=== PATIENT | male | born 1960 | race Caucasian/White ===

== ENCOUNTER 2016-11-07 10:06 | Day surgery (SDC) | payer OTHER ==
[~2016-11-07] VITALS: Ht 180.3 cm; Wt 81.0 kg
[2016-11-07] VITALS (10 sets, daily range): BP systolic 129–135; BP diastolic 84–94; PULSE 72–111; RESP 2–16; O2SAT 94–99
[~2016-11-07 10:06] MED LIST: ASCO-294 PO; CYCL5TAB PO; CeFAZolin 2 Gm/50 mL D5W IV Premix IV ONE; IMI100 PO; IMMU1VIA INFUSION; Lactated Ringer's 1,000 ML IV SCH; MULT-1018 PO; NAPR500T PO; PANT40TA3 PO; PHN100C PO
[2016-11-07] MEDS ORDERED: Succinylcholine Chloride 20 mg/mL 5 mL Inj ONE (10:07)
[2016-11-07] MEDS ORDERED: fentaNYL-PF 50 mCg/mL 2 mL Inj ONE (10:07)
[2016-11-07] MEDS ORDERED: Phenylephrine/NS 100 mCg/mL 10 mL Syringe IVPUSH ONE (10:07)
[2016-11-07] MEDS ORDERED: Ondansetron 2 mg/mL 2 mL Inj ONE (10:07)
[2016-11-07] MEDS ORDERED: Dexamethasone 4 mg/mL Inj ONE (10:07)
[2016-11-07] MEDS ORDERED: Propofol 10,000 mCg/mL 20 mL Inj ONE (10:07)
--- NOTE | 2016-11-07 10:09 | PCM.HPANE ---
Patient Data Date of Service: Nov 07, 2016 Surgeon Admitting Provider: Attending Provider:Jeferson Brown DO Primary Care Physician:Gemini Jasso MD Other Provider:Hubert Dowd Anesthesia Reason for Visit Left Rotator Cuff Tear, Impingment Syndrome Ht/WT & BMI Height (Feet): 5 Height (Inches): 11 Weight (Kilograms): 82.19 Body Mass Index 25.00 Allergies Coded Allergies: No Known Allergies (Unverified , 02/02/16) Past Anesthesia History Anesthesia History: Denies:: Anesthesia Reactions Diabetes History Hx Diabetes?: No Medications Reported Medications Ascorbate Calcium (Vitamin C)500 Mg [id number] Mg PO DAILY 11/04/16 Sumatriptan (Imitrex)100 Mg Fxfrtn678 Mg PO PRN migraines 11/04/16 Phenytoin Sodium ER (Dilantin)100 Mg Lcorbuk214 Mg PO TID 11/04/[address] 40 Mg Tablet.dr20 Mg PO BID Ref 0 11/04/16 Naproxen (Naprosyn)500 Mg Dtrkcj930 Mg PO BID PRN For Pain Ref 0 11/04/16 Multivitamin (Multi Vitamin Daily)1 Each Tablet1 Each PO DAILY 30 Days Ref 0 11/04/16 Immune Glob,Sallie Caprylate(IgG) (Gammaked)1 Gm/10 Ml VialUnknown Dose INFUSION DIRECTED 8mg/kg infusion. 11/04/16 Cyclobenzaprine 5 Mg Tablet5 Mg PO TID PRN Spasm 11/04/16 History History of ENT Problems?: No Hx of Heart Problems?: No Hx of Respiratory Problem?: No Respiratory History: Denies:: Oxygen Administration Use of C-PAP Machine Hx Neurologic Problems?: Yes Neurological History: Positive for:: Headaches (migraines) Other Neurological Pertinent: multi- focal motor neuropathy Other History/Comments neuropathy on right only Hx of GI Problems?: No Hx of Problems?: No Male Hx: Denies:: Prostate Problems Hx Musculoskeletal Problems?: Yes Musculoskeletal History: Positive for:: Musculoskeletal Trauma (left shoulder current admission problem) Hx of Psycho/Social Problems?: No Hx Surgeries?: No (unknown) Hx Any Other Health Problems?: Yes Other History: Denies:: Cancer Thyroid Disease Hx Diabetes: No Hx Alcohol Use: YesAlcoholic Drinks Per Day: 1-2 drinks monthlyHx Substance Use: No Smoking Status: Unknown if Ever Smoker Have You Smoked inLast 12 mo: No Stop/Bang P-Blood Pressure: treated: No B- Body Mass Index > 35 kg/m2: No A- Age over 50: Yes N- Neck Large Circumference: No G- Gender Male: Yes RAMOS Risk Assessment: Low Risk, <3 Yes Risk Assessment Category Category 1A: Patient has history of documented sleep apnea, and HAS NOT received any narcotic, sedative or anesthesia administration during this stay. Category 1B: Patient has history of documented sleep apnea, and HAS received any narcotic , sedative or anesthesia administration during this stay Category 2: Patient has SUSPECTED Obstructive Sleep Apnea, and HAS received any narcotic , sedative or anesthesia administration during this stay. Category 3: Patient has SUSPECTED Obstructive Sleep Apnea and HAS NOT received narcotic, sedative or anesthesia administration during this stay. Category 4: Outpatient in Procedural Areas with known sleep apnea or who screen positive for High Risk via the STOP/BANG questionnaire. Exam Exam General Appearance: Alert, Oriented X3, Cooperative, No Acute Distress HEENT/AIRWAY: MP 3 Lungs: Clear to Auscultation, Normal Air Movement Heart: Exam Unremarkable, Regular Rate/Rhythm, No Murmurs/Rubs/Gallops Plan Impression Patient chart reviewed, patient interviewed and anesthestic plan with risks, benefits, and alternatives discussed, and informed consent obtained. ASA Physical Status: ASA2 Mod Systemic Disease Anesthetic Plan: GA, Regional Block Bene/Risks/Altern/Consents: Yes HP Complete Prior to Induction: Yes Jeremiah Welch MD Nov 07, 2016 10:09 Alpesh Cook MD Nov 07, 2016 10:41
[2016-11-07] MEDS ORDERED: CeFAZolin Inj 2 gm / 50mL D5W IV ONE (10:11)
[2016-11-07] MEDS ORDERED: Lactated Ringer's 1,000 ML IV ONE (10:47)
[2016-11-07] MEDS ORDERED: Lactated Ringer's 1,000 ML IV SCH (11:26)
[2016-11-07] MEDS ORDERED: Lactated Ringer's 500 ML IV PRN (11:26)
[2016-11-07] MEDS ORDERED: HYDROmorphone 1 mg/mL Inj IVPUSH PRN (11:30)
[2016-11-07] MEDS ORDERED: Labetalol 5 mg/mL 4 mL Inj IV PRN (11:30)
[2016-11-07] MEDS ORDERED: Ondansetron 2 mg/mL 2 mL Inj IVPUSH PRN (11:30)
[2016-11-07] MEDS ORDERED: fentaNYL-PF 50 mCg/mL 2 mL Inj IVPUSH PRN (11:30)
[2016-11-07] MEDS ORDERED: Phenylephrine 10,000 mCg/mL Inj IVPUSH PRN (11:30)
[2016-11-07] MEDS ORDERED: MetoCLOpramide 5 mg/mL 2 mL Inj IVPUSH PRN (11:30)
[2016-11-07] MEDS ORDERED: Atropine 0.4 mg/mL Inj IVPUSH PRN (11:30)
[2016-11-07] MEDS ORDERED: hydrALAZINE 20 mg/mL Inj IVPUSH PRN (11:30)
[2016-11-07] MEDS ORDERED: EPHEDrine Sulfate 50 mg/mL Inj IVPUSH PRN (11:30)
--- NOTE | 2016-11-07 13:18 | PCM.ANEP1 ---
Post Anesthesia Phase 1 PACU Phase 1 Assessment Date of Service: Nov 07, 2016 Vital Signs 36.4 132/91 110 18 92% RA Anesthetic Administered: GA, Regional Block Level of Alertness: Sleepy, easy to arouse HANSON's with Equal Strength: Yes Pain: No Nausea or Vomiting: No Oxygen Delivery: Room Air Lungs: Clear to Auscultation, Normal Air Movement Alpesh Cook MD Nov 07, 2016 13:18
[2016-11-07] MEDS ORDERED: oxyCODONE-Acetamin 5-325 mg Tablet PO PRN (13:20)
--- NOTE | 2016-11-07 14:04 | PCM.ANEP2 ---
Post Anesthesia Evaluation ASA/CMS Post Anesthesia Date of Service: Nov 07, 2016 VS in Patient's Normal Range?: Yes Resp Stable; Airway Patent?: Yes CV Function & Hydration Stable: Yes Mental Status Recovered?: Yes Pain control Satisfactory?: Yes N/V Control Satisfactory?: Yes Alpesh Cook MD Nov 07, 2016 14:04
--- NOTE | 2016-11-09 03:19 | OP ---
[address] [address] OPERATIVE REPORT PATIENT: SEFERINO DE LOS SANTOS : 1960 MR#: [id number] ADMIT: 11/07/2016 JOB ID: [id number] DATE OF SURGERY: 11/07/2016 PREOPERATIVE DIAGNOSIS(ES): 1. Left shoulder rotator cuff tear. 2. Left shoulder impingement syndrome. 3. Left shoulder acromioclavicular arthritis. 4. Left shoulder bicipital tendinopathy. POSTOPERATIVE DIAGNOSIS(ES): 1. Left shoulder rotator cuff tear consisting of a tear of the anterior fibers of supraspinatus. 2. Left shoulder impingement syndrome. 3. Left shoulder acromioclavicular arthritis. 4. Left shoulder type 1 superior labral tear from anterior to posterior (SLAP). PROCEDURES: 1. Left shoulder arthroscopy with rotator cuff repair. 2. Left shoulder arthroscopy with subacromial decompression and acromioplasty. 3. Left shoulder arthroscopy with distal clavicle excision. 4. Left shoulder arthroscopy with limited debridement consisting of debridement of the labrum. SURGEON: Jeferson Brown DO. ASSISTANTS: Darius Lux PA-C. The assistance of Darius Lux PA-C, was necessary for manipulation of the intra-articular equipment as well as the camera and for primary closure at the conclusion of the case. BRIEF HISTORY: The patient is a pleasant 56-year-old male who presented to me shortly after a fall onto the left side. He had significant weakness and pain to the left shoulder. He was treated conservatively with short period of immobilization in a sling and then initiated on formal therapy. The patient had progression of motion but continued to have pain especially at night when sleeping. As he started to plateau with his conservative treatment. An MRI was obtained, which demonstrated a tear to the anterior fibers of the supraspinatus. I discussed with the patient the risks, benefits and indications to proceed with a left shoulder arthroscopy with a rotator cuff repair, subacromial decompression, distal clavicle excision and possible open biceps tenodesis as he also demonstrated signs of a simple tendinopathy. He understood the risks included, but not limited to, neurovascular injury, tendon injury, infection, failure to resolve the patient's preoperative symptoms, stiffness, persistent pain, all of which may require further intervention. The patient had all his questions answered. Consent was signed and placed in chart. PROCEDURE IN DETAIL: The patient was brought to the operative suite and placed supine on the operating table. Surgical time-out performed. Everyone in the room was in agreement. After appropriate anesthesia was obtained, the patient was placed in the beach chair position with all prominences well padded. The left upper extremity was then placed into arthroscopic arm pedroza. A standard posterior viewing portal was then developed in typical fashion. The camera introduced into the glenohumeral joint. Under gross observation, there was no evidence of any chondromalacia to the humeral head or the glenoid. There was fraying of the superior aspect of the labrum, very minimal tendinopathy of biceps was appreciated. The undersurface of the rotator cuff near the anterior insertion of the supraspinatus demonstrates significant fraying. An anterior working portal was then developed in typical fashion. A shaver was introduced to perform a debridement of the labrum. The labrum was probed. The biceps and superior labral anchor was intact to the superior aspect of the glenoid. This was only a type 1 labrum. It was thus debrided back to a stable rim. The undersurface of the rotator cuff was probed. Cutaneous fibers of the supraspinatus were tagged with a Prolene suture for later identification within the subacromial space. The camera was then brought into the subacromial space. On gross observation, there was significant hypertrophic bursa. A lateral working portal was then created to perform an extensive bursectomy. This allowed for visualization of the bursal surface of the rotator cuff. The rotator cuff was probed and evaluated up to the tagged Prolene suture which demonstrated a full thickness small supraspinatus tear. The greater tuberosity footprint, as well as the tear, was debrided back with a shaver followed by application of a 4.5 mm Arthrex corkscrew anchor that was a double loaded. Four limbs of the sutures were passed through the rotator cuff tendon and tied utilizing a sliding knot for an excellent single medial row repair. Attention was then turned toward the undersurface of the acromion. This was further delineated with a surface electrocautery wand. There is a slight anterior hump to the anterior aspect of the acromion, which was addressed utilizing a motorized bur. An acromioplasty was then performed. Attention next was addressed towards the distal clavicle. There was slight under hanging of the distal clavicle. Acromioclavicular arthritis was demonstrated also preoperatively on MRI, as well as plain radiographs. The bur next was placed through an anterior portal to perform a distal clavicle excision of approximately 10 mm in width. The arthroscopic equipment was then removed from the joint. The portals closed with 4-0 nylon. The patient was then placed into a bulky dressing and into a shoulder immobilizer. ESTIMATED BLOOD LOSS: Less 25 cc. COMPLICATIONS: None. DISPOSITION: The patient tolerated the procedure well. Anesthesia was reversed and the patient was transferred back to recovery. POSTOPERATIVE PLAN: The patient will follow up in office in two weeks. We will remove the patient's sutures at that time. He will be in that immobilizer for six weeks but due to the size of the tear, we will start him with formal physical therapy to start working on passive range of motion at four weeks postop.
== END 2016-11-07 23:59 | disposition home or self-care (01) ==
LOC: SAS 10:06
PROVIDERS: ATTEND Orthopaedic Surgery
DX: M75.122 Complete rotator cuff tear or rupture of left shoulder, not specified as traumatic (principal); M19.012 Primary osteoarthritis, left shoulder; M67.922 Unspecified disorder of synovium and tendon, left upper arm; M75.42 Impingement syndrome of left shoulder; G61.82 Multifocal motor neuropathy; G43.909 Migraine, unspecified, not intractable, without status migrainosus; G40.409 Other generalized epilepsy and epileptic syndromes, not intractable, without status epilepticus

== ENCOUNTER 2017-03-12 06:35 | Day surgery (SDC) | payer OTHER ==
[2017-03-12] VITALS (9 sets, daily range): BP systolic 126–142; BP diastolic 74–88; PULSE 72–82; RESP 14–17; O2SAT 97–100
[~2017-03-12] VITALS: Ht 180.3 cm; Wt 80.2 kg
[~2017-03-12 06:35] MED LIST changes: -CYCL5TAB PO; -CeFAZolin 2 Gm/50 mL D5W IV Premix IV ONE; +CeFAZolin 2 Gm/50 mL D5W IV Premix IV SCH; -Lactated Ringer's 1,000 ML IV SCH; -NAPR500T PO
[2017-03-12] MEDS ORDERED: Ondansetron 2 mg/mL 2 mL Inj ONE (06:36)
[2017-03-12] MEDS ORDERED: Propofol 10,000 mCg/mL 20 mL Inj ONE (06:36)
[2017-03-12] MEDS ORDERED: fentaNYL-PF 50 mCg/mL 2 mL Inj ONE (06:36)
[2017-03-12] MEDS: Lactated Ringer's 1,000 ML IV SCH ×2 (07:02→09:13)
[2017-03-12] MEDS ORDERED: Lactated Ringer's 500 ML IV PRN (09:08)
[2017-03-12] MEDS ORDERED: Lactated Ringer's 1,000 ML IV SCH (09:08)
--- NOTE | 2017-03-12 09:08 | PCM.HPANE ---
Patient Data Date of Service: Mar 12, 2017 Surgeon Admitting Provider: Attending Provider:Jacob Dewitt MD Primary Care Physician:Gemini Jasso MD Other Provider:Hubert Dowd Anesthesia Reason for Visit Left Carpal Tunnel Syndrome, Left Ulnar Nerve Lesi Ht/WT & BMI Height (Feet): 5 Height (Inches): 11.00 Weight (Kilograms): 80.2 Body Mass Index 24.00 Allergies Coded Allergies: No Known Allergies (Unverified , 03/07/17) Past Anesthesia History Anesthesia History: Denies:: Abnormal Airway, Anesthesia Reactions, Difficult Intubation, Fam Anesthesia Reaction, Fam Malignant Hypertherm, Malignant Hyperthermia Diabetes History Hx Diabetes?: No MRSA MRSA: No Medications Home Meds Incl Beta Rojas: No Reported Medications Ascorbate Calcium (Vitamin C)500 Mg Jmzhhl353 Mg PO DAILY 11/04/16 Sumatriptan (Imitrex)100 Mg Emilxl025 Mg PO PRN migraines 11/04/16 Phenytoin Sodium ER (Dilantin)100 Mg Fshzcxn410 Mg PO TID 11/04/[address] 40 Mg Tablet.dr40 Mg PO DAILY Ref 0 //SAT/SUN 11/04/16 Multivitamin (Multi Vitamin Daily)1 Each Tablet1 Each PO DAILY 30 Days Ref 0 11/04/16 Immune Glob,Sallie Caprylate(IgG) (Gammaked)1 Gm/10 Ml VialUnknown Dose INFUSION TWICE MONTH 8mg/kg infusion. 11/04/16 Discontinued Reported Medications Naproxen (Naprosyn)500 Mg Wohvfg610 Mg PO BID PRN For Pain Ref 0 11/04/16 Cyclobenzaprine 5 Mg Tablet5 Mg PO TID PRN Spasm 11/04/16 History History of ENT Problems?: Yes HEENT History: Positive for:: Dysphagia Denies:: Abnormal Airway Difficult Intubation Hearing Problem Sinus Problem TMJ Denture Type: None Teeth Condition: Within Normal Limits Hx of Heart Problems?: No Hx of Respiratory Problem?: No Respiratory History: Denies:: Hemoptysis Oxygen Administration Pneumonia Pulmonary Embolism Tuberculosis Use of C-PAP Machine Hx Neurologic Problems?: Yes Neurological History: Positive for:: Headaches (migraines) Seizures (well controlled on dilantin, no seizure in >10 yrs) Denies:: Alzheimer's Disease CVA Dementia Parkinson's Disease TIA Other Neurological Pertinent: 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 Hx Musculoskeletal Problems?: Yes Musculoskeletal History: Positive for:: Musculoskeletal Trauma (rotator cuff surg lt side) Denies:: Back Injury Degenerative Joint Fibromyalgia Joint Replacement Myasthenia Gravis Osteoarthritis Rheumatoid Arthritis Hx of Psycho/Social Problems?: No Hx Surgeries?: Yes (Rotator cuff repair october 2016) Hx Any Other Health Problems?: Yes Other History: Denies:: Cancer Hospitalization Thyroid Disease History Blood Transfusions: Positive for:: Accept Blood Products? Denies:: Blood Transfusions Hx Diabetes: No Hx Alcohol Use: NoHx Substance Use: No Smoking Status: Unknown if Ever Smoker Have You Smoked inLast 12 mo: No Stop/Bang Treated for Sleep Apnea?: No Do You Have a CPAP Machine?: No S-Snoring: Do You Snore Loudly: No T-Tired: feel tired, fatigued: No O-Obsered: Observed not breath: No P-Blood Pressure: treated: No B- Body Mass Index > 35 kg/m2: No A- Age over 50: No N- Neck Large Circumference: No G- Gender Male: Yes RAMOS Total Score: 1 RAMOS Risk Assessment: Low Risk, <3 Yes Risk Assessment Category Category 1A: Patient has history of documented sleep apnea, and HAS NOT received any narcotic, sedative or anesthesia administration during this stay. Category 1B: Patient has history of documented sleep apnea, and HAS received any narcotic , sedative or anesthesia administration during this stay Category 2: Patient has SUSPECTED Obstructive Sleep Apnea, and HAS received any narcotic , sedative or anesthesia administration during this stay. Category 3: Patient has SUSPECTED Obstructive Sleep Apnea and HAS NOT received narcotic, sedative or anesthesia administration during this stay. Category 4: Outpatient in Procedural Areas with known sleep apnea or who screen positive for High Risk via the STOP/BANG questionnaire. Exam Exam Vital Signs Vital Signs Date Time Temp Pulse Resp B/P Pulse Ox O2 Delivery O2 Flow Rate FiO2 03/12/17 07:15 36.2 74 14 130/76 99 Room Air General Appearance: Alert HEENT/AIRWAY: MP 1 Lungs: Clear to Auscultation, Normal Air Movement Heart: Exam Unremarkable, Regular Rate/Rhythm, No Murmurs/Rubs/Gallops Meds/Labs/Diagnostics Admission Meds Current Medications Lactated Ringer's (Lr) 1,000 ml @ 120 mls/hr Q8H20M IV Last administered on t 07:02; Start 03/12/17 at 05:00; Stop 03/12/17 at 13:19 Plan Impression Patient chart reviewed, patient interviewed and anesthestic plan with risks, benefits, and alternatives discussed, and informed consent obtained. NPO per Anesth. Guidelines: Yes ASA Physical Status: ASA2 Mod Systemic Disease Anesthetic Plan: GA Bene/Risks/Altern/Consents: Yes HP Complete Prior to Induction: Yes Young Cornejo MD Mar 12, 2017 09:08
[2017-03-12] MEDS ORDERED: fentaNYL-PF 50 mCg/mL 2 mL Inj IVPUSH PRN (09:10)
[2017-03-12] MEDS ORDERED: EPHEDrine Sulfate 50 mg/mL Inj IVPUSH PRN (09:10)
[2017-03-12] MEDS ORDERED: Phenylephrine 10,000 mCg/mL Inj IVPUSH PRN (09:10)
[2017-03-12] MEDS ORDERED: MetoCLOpramide 5 mg/mL 2 mL Inj IVPUSH PRN (09:10)
[2017-03-12] MEDS ORDERED: Dexamethasone 4 mg/mL Inj IVPUSH PRN (09:10)
[2017-03-12] MEDS ORDERED: HYDROmorphone 1 mg/mL Inj IVPUSH PRN (09:10)
[2017-03-12] MEDS ORDERED: Ondansetron 2 mg/mL 2 mL Inj IVPUSH PRN (09:10)
[2017-03-12] MEDS ORDERED: Bupivacaine-MPF 0.25%/EPI 30 mL Inj INFILTRATE ONE (09:12)
--- NOTE | 2017-03-12 10:15 | PCM.ANEP1 ---
Post Anesthesia PACU Phase 1 Assessment Vital Signs Vital Signs Date Time Temp Pulse Resp B/P Pulse Ox O2 Delivery O2 Flow Rate FiO2 03/12/17 07:15 36.2 74 14 130/76 99 Room Air Anesthetic Administered: GA Level of Alertness: Sleepy, easy to arouse HANSON's with Equal Strength: Yes Pain: No Nausea or Vomiting: No CV Function & Hydration Stable: Yes Airway Device: Oxygen Delivery: Room Air Lungs: Clear to Auscultation, Normal Air Movement Dermatome Level: Full Sensation PACU Phase 2 Assessment Complications: No Follow up Care: No Patient Instructions Provided: N/A Young Cornejo MD Mar 12, 2017 10:15
[2017-03-12] MEDS ORDERED: oxyCODONE-Acetamin 5-325 mg Tablet PO PRN (10:25)
--- NOTE | 2017-03-14 16:21 | OP ---
[address] [address] OPERATIVE REPORT PATIENT: SEFERINO DE LOS SANTOS : 1960 MR#: [id number] ADMIT: 03/12/2017 JOB ID: [id number] DATE OF SURGERY: 03/12/2017 PREOPERATIVE DIAGNOSIS(ES): 1. Left carpal tunnel syndrome. 2. Left cubital tunnel syndrome. POSTOPERATIVE DIAGNOSIS(ES): 1. Left carpal tunnel syndrome. 2. Left cubital tunnel syndrome. PROCEDURE: 1. Left carpal tunnel release using an extended open incision. 2. Left cubital tunnel decompression. SURGEON: Jacob Dewitt MD. ACTIVITIES OFFICER: None. ANESTHESIA: General anesthesia. COMPLICATIONS: None apparent. SPECIMEN: None. INDICATIONS FOR PROCEDURE: This is a 56-year-old male patient with physical examination findings, history, and electrodiagnostic studies consistent with a left-sided carpal tunnel syndrome and cubital tunnel syndrome. At this point, release of the two compressions is indicated. PROCEDURES AND FINDINGS: The patient was identified in the preoperative area. Surgical site was marked. The patient was then taken back to the operating room and placed supine on the operating table. Appropriate time-outs were taken. General anesthesia was induced smoothly. The patient was then prepped and draped in the usual sterile manner. Local anesthesia was then infiltrated to the surgical site consisting of 0.25% Marcaine. The patient's left upper extremity was then exsanguinated and tourniquet inflated to 250 mmHg. An open carpal tunnel incision was then made starting at the junction of the ring finger ray and the Reyes cardinal line. Incision was carried proximally for 1.5 cm with a #15 blade. Incision was then deepened down to the superficial palmar fascia with blunt and sharp dissection with a pair of iris scissors. I then split the superficial palmar fascia with a 15 blade. The incision was then bluntly carried down to the transverse carpal ligament. It was noted that patient has some transverse muscle fibers in this area. I incised the deep ligament at the ulnar edge of the muscle fiber. Once this had been done, a small amount of dissection was carried out. It was noted that I was not in the carpal tunnel. At this point, I decided to extend the incision into the proximal palm and distal wrist. Again incision was carried along the thenar crease down to the proximal palm where a zigzag was incorporated into the distal wrist. Incision was deepened down to the underlying superficial fascia which was split. At this point, I performed blunt dissection with a pair of tenotomy scissors at the forearm fascia to enter the deep space. The median nerve was identified. I then traced the median nerve from a proximal to distal fashion into the carpal tunnel. The overlying transverse carpal ligament was divided. I then encountered again what appears to be a palmaris brevis muscle. The muscle was teased away from its attachment on the transverse carpal ligament until enough space was obtained for me to divide the transverse carpal ligament. The transverse carpal ligament was then divided into the palm. All residual fascial bands were lysed. The elevated portion of the palmaris brevis muscle was a Bovie with bipolar electrocautery. Once this has been done, I turned my attention to the elbow. An incision was then made directly over the cubital tunnel with a #15 blade. Incision was then deepened down bluntly and sharply to the underlying deep fascia. I turned my attention proximally where the ulnar nerve was identified. The ulnar nerve was then traced distally into the cubital tunnel. The ligament over the cubital tunnel was then divided as laterally as possible, close to the olecranon and away from the epicondyle. This was done until the nerve enters underneath the flexor carpi ulnaris muscle. Once this has been observed, I divided the superficial and the deep fascia covering the flexor carpi ulnaris muscle. Once this has been done, the nerve was examined throughout the surgical site and no other masses or ganglion was observed. The nerve was freely mobile. The nerve was without any obvious compression. Tourniquet was released and hemostasis was obtained with electrocautery. The elbow incision was then reapproximated first with a layer of 3-0 Monocryl [id number] sutures reapproximating some of the subcutaneous tissue. A layer of 3-0 Monocryl deep dermal sutures were then followed by 4-0 Monocryl running subcuticular suture. The palmar and wrist incisions were reapproximated with several 4-0 nylon horizontal mattress sutures. The patient was then placed into a small volar splint. Reggie bandage was then applied from the finger all the way proximal to the elbow surgical site. The patient tolerated the procedure well. Needle count, sponge count, instrument counts were correct at the end of the procedure. The patient was transported to recovery in stable condition.
== END 2017-03-12 23:59 | disposition home or self-care (01) ==
LOC: SAS 06:35
PROVIDERS: ATTEND Plastic Surgery
DX: G56.22 Lesion of ulnar nerve, left upper limb (principal); G56.02 Carpal tunnel syndrome, left upper limb; Z86.69 Personal history of other diseases of the nervous system and sense organs
CPT/HCPCS: 64718; 64721; J2405; J2704; J3010; J7120